=== PATIENT | male | born 1955 | race African-American/Black ===

== ENCOUNTER 2017-08-26 10:28 | Emergency (ER) | payer SELFPAY ==
[2017-08-26] MEDS ORDERED: KETOROLAC TROMETHAMINE 60 MG/2 ML SDV IM ONE (12:31)
--- NOTE | 2017-08-26 12:37 | ER Document Report ---
ED Medical Screen (RME) - General Chief Complaint: Foot Pain Stated Complaint: FOOT PAIN Time Seen by Provider: 08/26/17 12:31 Mode of Arrival: Ambulatory Information source: Patient TRAVEL OUTSIDE OF THE [place] IN LAST 30 DAYS: No - HPI Notes: 08/26/17 12:28___ 61 yr old male presents today with complaints of bilateral foot pain x 3 days. pt working with cement x 1 week ago, noticed pain in his feet since then, states he wears old tennis shoe. pain come on gradually. denies head trauma or change in loc. pain is 5/10,throbbing. able to bear full weight. nothing makes better, ambulation makes worse. no otc medications tried. pain is progressive and constant. pt has not tried icing or elevating foot. denies any n/t in foot. denies any other area of injury. Denies any chest pain, shortness of breath, nausea, vomiting, diarrhea, blurred vision, double vision, loss of vision, abdominal pain, hematuria, dysuria - Related Data Allergies/Adverse Reactions: No Known Allergies Allergy (Verified 08/26/17 10:29) Past Medical History - General Information source: Patient - Social History Family history: None Review of Systems - Review of Systems Constitutional: No symptoms reported EENT: No symptoms reported Cardiovascular: No symptoms reported Respiratory: No symptoms reported Gastrointestinal: No symptoms reported Genitourinary: No symptoms reported Male Genitourinary: No symptoms reported Musculoskeletal: See HPI Skin: No symptoms reported Hematologic/Lymphatic: No symptoms reported Neurological/Psychological: No symptoms reported Physical Exam - Vital signs Vitals: Temp Pulse Resp BP Pulse Ox 97.7 F 73 18 159/76 H 99 08/26/17 10:31 08/26/17 10:31 08/26/17 10:31 08/26/17 10:31 08/26/17 10:31 Interpretation: Normal - Notes Notes: PHYSICAL EXAMINATION: GENERAL: Well-appearing, well-nourished and in no acute distress. HEAD: Atraumatic, normocephalic. EYES: Pupils equal round and reactive to light, extraocular movements intact, sclera anicteric, conjunctiva are normal. ENT: Nares patent, oropharynx clear without exudates. Moist mucous membranes. NECK: Normal range of motion, supple without lymphadenopathy LUNGS: Breath sounds clear to auscultation bilaterally and equal. No wheezes rales or rhonchi. HEART: Regular rate and rhythm without murmurs ABDOMEN: Soft, nontender, nondistended abdomen. No guarding, no rebound. No masses appreciated. Musculoskeletal: Normal range of motion, no pitting or edema. No cyanosis. bilateral foot with STS and tenderness proximal to calcaneal and 2nd metatarsal bones with palpation. Unable to palpate a step-off. No open lesions. squeeze test negative. dtr +2 BLE. Limited APROM. distal pulses + 2 in BUE. full motor and sensory function. No vascular compromise. Ankle exam within normal limits. No noted lacerations, lesions, ulcers or break in the skin. NEUROLOGICAL: Cranial nerves grossly intact. Normal speech, normal gait. Normal sensory, motor exams PSYCH: Normal mood, normal affect. Course - Re-evaluation Re-evalutation: Rechecked the patient who is resting comfortably. On re-exam, patient is symptomatically improved. Discussed the results of the radiology as well as the diagnosis at great length. Discussed the need to return to the ER for any new or worsening sx. Patient understands to take the Rx as directed. All questions answered. Patient comfortable with the decision to go home. - Vital Signs Vital signs: Temp Pulse Resp BP Pulse Ox 97.7 F 73 18 159/76 H 99 08/26/17 10:31 08/26/17 10:31 08/26/17 10:31 08/26/17 10:31 08/26/17 10:31 Doctor's Discharge - Discharge Clinical Impression: Foot pain Qualifiers: Laterality: bilateral Qualified Code(s): M79.671 - Pain in right foot Condition: Good Disposition: HOME, SELF-CARE Additional Instructions: Sprain Your injury is a sprain. A sprain results from stretching or tearing of the ligaments, usually from a twisting injury. The ligaments will require time and protection in order to heal properly. Many sprains are quite disabling and should be taken seriously. The usual initial treatment of sprains is cold packs, elevation, and rest of the injured area. Your physician has assessed the seriousness of your ligament injury, and has outlined a treatment plan. Understand that this treatment may change, depending on how you progress. If a re-examination was recommended, it is important that you follow up as instructed. Call the doctor any time if there is severe pain, numbness, or loss of function in the injured area. : advised to return to the ER if any signs or symptoms became worse. Take over- the-counter Motrin and Tylenol as needed for any fevers or pain. Follow up with primary care within 1-2 days well as customer engagement specialist. All questions and concerns answered by this provider. Patient/family states would follow plan of care and agreed to plan of care. Patient was discharged home and off unit without incident. Please excuse any errors in this document was done by dragon dictation. Prescriptions: Ibuprofen 800 mg PO TIDP PRN #12 tablet PRN Reason: Forms: Return to Work Referrals: BENY STAHL MD [ACTIVE STAFF] - Follow up in 1 week
--- NOTE | 2017-08-26 13:27 | RADIOLOGY REPORT (SQ) ---
EXAM DESCRIPTION: FOOT BILATERAL 2 VIEWS COMPLETED DATE/TIME: 08/26/2017 1:04 pm REASON FOR STUDY: bilateral foot pain COMPARISON: None. NUMBER OF VIEWS: Two views of each foot TECHNIQUE: AP and lateral radiographic images acquired of the right and left foot. LIMITATIONS: None. FINDINGS: MINERALIZATION: Normal. BONES: No acute fracture or dislocation. No worrisome bone lesions. JOINTS: No effusions. SOFT TISSUES: No soft tissue swelling. No foreign body. OTHER: No other significant finding. IMPRESSION: No significant findings. TECHNICAL DOCUMENTATION: JOB ID: [id number] [employer]- All Rights Reserved
[2017-08-26 13:57] VITALS: BP 137/77
== END 2017-08-26 13:57 | disposition home or self-care (01) ==
LOC: ER 10:28
DX: M79.671 Pain in right foot (principal); M79.672 Pain in left foot
CPT/HCPCS: 99283; 96372; 73620; J1885